=== PATIENT | female | born 1970 | race Caucasian/White ===

== ENCOUNTER 2018-02-04 18:06 | Emergency (ER) | payer MEDICARE ==
--- NOTE | 2018-02-04 18:26 | EKG REPORT ---
SEVERITY:- BORDERLINE ECG - SINUS RHYTHM BORDERLINE T ABNORMALITIES, ANT-LAT LEADS : Confirmed by: Jah Calloway MD 04-Feb-2018 18:26:00
[2018-02-04] MEDS ORDERED: NORMAL SALINE 1000 ML 1,000 ML IV ONE (18:46)
[2018-02-04] MEDS ORDERED: FENTANYL CITRATE INJ/PF 100 MCG/2 ML AMPUL IV ONE (18:46)
[2018-02-04] MEDS ORDERED: ONDANSETRON HCL INJ/PF 4 MG/2 ML SDV IV ONE ×2 (18:46→22:12)
--- NOTE | 2018-02-04 18:48 | ER Document Report ---
ED Medical Screen (RME) - General Chief Complaint: Nausea/Vomiting/Diarrhea Stated Complaint: CHEST PAIN Time Seen by Provider: 02/04/18 18:46 Notes: 48 years old female presents today with left lower quadrant abdominal pain, feels like a mass which is floating around and giving severe pain. Been going on for the last few days. Associated with nausea no vomiting. Denies any diarrhea or constipation. Denies any dysuria frequency urgency. Denies any fever chills or other constitutional symptoms. On examination-leg amputation, left side of the abdomen is extremely tender even with gentle palpation. TRAVEL OUTSIDE OF THE [place] IN LAST 30 DAYS: No - Related Data Allergies/Adverse Reactions: No Known Allergies Allergy (Verified 02/04/18 18:07) Past Medical History - Social History Chew tobacco use (# tins/day): No Frequency of alcohol use: None Drug Abuse: None - Past Medical History Cardiac Medical History: Reports: Hx Hypercholesterolemia, Hx Hypertension Endocrine Medical History: Reports: Hx Diabetes Mellitus Type 2 Renal/ Medical History: Denies: Hx Peritoneal Dialysis Past Surgical History: Reports: Hx Orthopedic Surgery - BKA right leg, left toe amputation x5 Physical Exam - Vital signs Vitals: Temp Pulse Resp BP Pulse Ox 98.4 F 96 18 140/84 H 100 02/04/18 18:20 02/04/18 18:20 02/04/18 18:20 02/04/18 18:20 02/04/18 18:20 Course - Vital Signs Vital signs: Temp Pulse Resp BP Pulse Ox 98.4 F 96 18 140/84 H 100 02/04/18 18:20 02/04/18 18:20 02/04/18 18:20 02/04/18 18:20 02/04/18 18:20
[2018-02-04 19:31] LABS: ABSOLUTE BASOPHILS # (AUTO) 0.1 10^3/uL (0.0-0.2); ABSOLUTE EOSINOPHILS # (AUTO) 0.1 10^3/uL (0.0-0.6); ABSOLUTE LYMPHOCYTES (AUTO) 3.2 10^3/uL (0.5-4.7); ABSOLUTE MONOCYTES (AUTO) 0.7 10^3/uL (0.1-1.4); ABSOLUTE NEUT (AUTO) 5.5 10^3/uL (1.7-8.2); BASOPHILS % (AUTO) 1.1 % (0-2); EOSINOPHILS % (AUTO) 1.2 % (0-6); HEMATOCRIT 43.1 % (36.0-47.0); LYMPHOCYTES % (AUTO) 33.1 % (13-45); MEAN CORPUSCULAR HEMOGLOBIN 29.9 pg (27.0-33.4); MEAN CORPUSCULAR HGB CONC 34.7 g/dL (32.0-36.0); MEAN CORPUSCULAR VOLUME 86 fl (80-97); MONOCYTES % (AUTO) 7.2 % (3-13); PLATELET COUNT 389 10^3/uL (150-450); RED BLOOD COUNT 5.02 10^6/uL (3.72-5.28); RED CELL DISTRIBUTION WIDTH 12.9 % (11.5-14.0); SEGMENTED NEUTROPHILS % (AUTO) 57.4 % (42-78); TOTAL CELLS COUNTED % (AUTO) 100 %; WHITE BLOOD COUNT 9.6 10^3/uL (4.0-10.5)
[2018-02-04 19:43] LABS: APPEARANCE,URINE CLEAR; BILIRUBIN,URINE NEGATIVE (NEGATIVE); COLOR,URINE YELLOW; GLUCOSE, URINE >=500 mg/dL (NEGATIVE); KETONES,URINE NEGATIVE (NEGATIVE); LEUKOCYTE ESTERASE,URINE TRACE (NEGATIVE); NITRITE,URINE NEGATIVE (NEGATIVE); PROTEIN,URINE 100 mg/dL (NEGATIVE); URINE SPECIFIC GRAVITY 1.029; UROBILINOGEN,URINE NEGATIVE mg/dL (<2.0)
[2018-02-04 19:57] LABS: ALANINE AMINOTRANSFERASE 14 U/L (9-52); ALBUMIN 3.7 g/dL (3.5-5.0); ALKALINE PHOSPHATASE 70 U/L (38-126); ANION GAP 9 (5-19); ASPARTATE AMINO TRANSFERASE 28 U/L (14-36); BILIRUBIN,DIRECT 0.2 mg/dL (0.0-0.4); BILIRUBIN,TOTAL 0.5 mg/dL (0.2-1.3); BLOOD UREA NITROGEN 18 mg/dL (7-20); CALCIUM 9.3 mg/dL (8.4-10.2); CARBON DIOXIDE 28 mmol/L (22-30); CHLORIDE 100 mmol/L (98-107); GLUCOSE 349 mg/dL (75-110); POTASSIUM 4.1 mmol/L (3.6-5.0); SODIUM 137.4 mmol/L (137-145)
[2018-02-04] MEDS ORDERED: ASPIRIN 81 MG TABLET, CHEWABLE PO ONE (20:17)
--- NOTE | 2018-02-04 20:26 | ER Document Report ---
ED General - General Chief Complaint: Nausea/Vomiting/Diarrhea Stated Complaint: CHEST PAIN Time Seen by Provider: 02/04/18 18:46 Mode of Arrival: Ambulatory Information source: Patient Notes: 48-year-old female with hypertension, hyperlipidemia, coronary artery disease, type 2 diabetes presents with complaint of chest pain, nausea, vomiting, diarrhea, abdominal pain and headache. Patient states that she awoke this morning at 3 AM with stabbing substernal chest pain that she states has been constant since that time. She denies radiation of pain. Patient's abdominal pain has been there for approximately 6 months. She describes it as an aching pain located in her left upper quadrant. She states the pain is worse when she stands up. She denies shortness of breath. She states that she is also had multiple episodes of nonbilious nonbloody emesis and nonbloody diarrhea. She denies any black or bloody stools. Patient states that she has not been taking her Lantus or metformin since October. When asked why she states that she moved from [place] and the medication was lost in her luggage. Patient is supposed to be taking Lantus 40 units at night and metformin 500 mg twice daily. TRAVEL OUTSIDE OF THE [place] IN LAST 30 DAYS: No - HPI Onset: This morning Onset/Duration: Sudden Quality of pain: Achy, Throbbing Severity: Mild Associated symptoms: Chest pain, Chills, Diarrhea, Nausea, Vomiting Exacerbated by: Movement Relieved by: Denies Similar symptoms previously: Yes Recently seen / treated by doctor: Yes - Related Data Allergies/Adverse Reactions: No Known Allergies Allergy (Verified 02/04/18 18:07) Past Medical History - General Information source: Patient, [facility] Records - Social History Smoking Status: Former Smoker Chew tobacco use (# tins/day): No Frequency of alcohol use: None Drug Abuse: None Lives with: Alone Family History: Reviewed & Not Pertinent Patient has suicidal ideation: No Patient has homicidal ideation: No - Past Medical History Cardiac Medical History: Reports: Hx Hypercholesterolemia, Hx Hypertension Endocrine Medical History: Reports: Hx Diabetes Mellitus Type 2 Renal/ Medical History: Denies: Hx Peritoneal Dialysis Past Surgical History: Reports: Hx Orthopedic Surgery - BKA right leg, left toe amputation x5 Review of Systems - Review of Systems Constitutional: denies: Fever, Recent illness EENT: denies: Blurred vision Cardiovascular: Chest pain. denies: Dizziness Respiratory: denies: Cough, Short of breath Gastrointestinal: Abdominal pain, Diarrhea, Nausea, Vomiting Genitourinary: denies: Dysuria, Flank pain Female Genitourinary: No symptoms reported Musculoskeletal: denies: Back pain Skin: denies: Rash Hematologic/Lymphatic: No symptoms reported Neurological/Psychological: denies: Weakness, Headaches -: Yes All other systems reviewed and negative Physical Exam - Vital signs Vitals: Temp Pulse Resp BP Pulse Ox 98.4 F 96 18 140/84 H 100 02/04/18 18:20 02/04/18 18:20 02/04/18 18:20 02/04/18 18:20 02/04/18 18:20 - Notes Notes: PHYSICAL EXAMINATION: GENERAL: Well-appearing, well-nourished and in no acute distress. HEAD: Atraumatic, normocephalic. EYES: Pupils equal round and reactive to light, extraocular movements intact, conjunctiva are normal. ENT: Nares patent, oropharynx clear without exudates. Moist mucous membranes. NECK: Normal range of motion, supple without lymphadenopathy LUNGS: Breath sounds clear to auscultation bilaterally and equal. No wheezes rales or rhonchi. HEART: Regular rate and rhythm without murmurs ABDOMEN: Soft, nontender, nondistended abdomen. No guarding, no rebound. No masses appreciated. Female : deferred Musculoskeletal: Normal range of motion, no pitting or edema. Right BKA. Amputation of the toes of her left foot. NEUROLOGICAL: Cranial nerves grossly intact. Normal speech, normal gait. Normal sensory, motor exams PSYCH: Normal mood, normal affect. SKIN: Warm, Dry, normal turgor, no rashes or lesions noted. Course - Re-evaluation Re-evalutation: Laboratory 02/04/18 02/04/18 02/04/18 19:21 19:21 19:26 WBC 9.6 RBC 5.02 Hgb 15.0 Hct 43.1 MCV 86 MCH 29.9 MCHC 34.7 RDW 12.9 Plt Count 389 Seg Neutrophils % 57.4 Lymphocytes % 33.1 Monocytes % 7.2 Eosinophils % 1.2 Basophils % 1.1 Absolute Neutrophils 5.5 Absolute Lymphocytes 3.2 Absolute Monocytes 0.7 Absolute Eosinophils 0.1 Absolute Basophils 0.1 Sodium 137.4 Potassium 4.1 Chloride 100 Carbon Dioxide 28 Anion Gap 9 BUN 18 Creatinine 1.04 Est GFR ( Amer) > 60 Est GFR (Non-Af Amer) 56 L Glucose 349 H Calcium 9.3 Total Bilirubin 0.5 Direct Bilirubin 0.2 Neonat Total Bilirubin Not Reportable Neonat Direct Bilirubin Not Reportable Neonat Indirect Bili Not Reportable AST 28 ALT 14 Alkaline Phosphatase 70 Troponin I Total Protein 7.0 Albumin 3.7 Lipase 46.0 Urine Color YELLOW Urine Appearance CLEAR Urine pH 6.0 Ur Specific [place] 1.029 Urine Protein 100 H Urine Glucose (UA) >=500 H Urine Ketones NEGATIVE Urine Blood NEGATIVE Urine Nitrite NEGATIVE Urine Bilirubin NEGATIVE Urine Urobilinogen NEGATIVE Ur Leukocyte Esterase TRACE H Urine WBC (Auto) 1 Urine RBC (Auto) 2 Urine Bacteria (Auto) TRACE Squamous Epi Cells Auto 1 Urine Mucus (Auto) RARE Urine Ascorbic Acid NEGATIVE 02/04/18 20:41 WBC RBC Hgb Hct MCV MCH MCHC RDW Plt Count Seg Neutrophils % Lymphocytes % Monocytes % Eosinophils % Basophils % Absolute Neutrophils Absolute Lymphocytes Absolute Monocytes Absolute Eosinophils Absolute Basophils Sodium Potassium Chloride Carbon Dioxide Anion Gap BUN Creatinine Est GFR ( Amer) Est GFR (Non-Af Amer) Glucose Calcium Total Bilirubin Direct Bilirubin Neonat Total Bilirubin Neonat Direct Bilirubin Neonat Indirect Bili AST ALT Alkaline Phosphatase Troponin I < 0.012 Total Protein Albumin Lipase Urine Color Urine Appearance Urine pH Ur Specific [place] Urine Protein Urine Glucose (UA) Urine Ketones Urine Blood Urine Nitrite Urine Bilirubin Urine Urobilinogen Ur Leukocyte Esterase Urine WBC (Auto) Urine RBC (Auto) Urine Bacteria (Auto) Squamous Epi Cells Auto Urine Mucus (Auto) Urine Ascorbic Acid Abdomen/Pelvis CT 02/04/18 18:46 IMPRESSION: No acute disease. 48-year-old female with hypertension, hyperlipidemia, coronary artery disease, type 2 diabetes (currently noncompliant with her diabetic medication of metformin and Lantus )presents with complaint of chest pain, nausea, vomiting, diarrhea, abdominal pain and headache. Patient states that she awoke this morning at 3 AM with stabbing substernal chest pain that she states has been constant since that time. She denies radiation of pain. Patient's abdominal pain has been there for approximately 6 months. She describes it as an aching pain located in her left upper quadrant. She states the pain is worse when she stands up. Patient reports 3-4 episodes of nonbloody nonbilious emesis. She denies any black or bloody stools. She denies sick contacts, recent antibiotic use. She recently moved here from [place] and reports that she has been seen multiple times for these symptoms in the past. Exam is significant for tenderness to the left upper quadrant without guarding or rebound. Vital signs reviewed and patient is afebrile, mildly hypertensive but not hypoxic. She does not appear toxic or dehydrated. She is in no acute distress. CBC is without leukocytosis or anemia. CMP does show an elevated glucose of 349 without evidence of DKA. Urinalysis is not consistent with urinary tract infection. CT of the abdomen and pelvis was obtained and showed a small periumbilical hernia. Patient received multiple rounds of pain medication, Zofran. On her first reevaluation she is resting comfortably and when awoken she states that she is still in pain. Patient has had no episodes of vomiting or diarrhea during her ED course. Patient was reassured. She was provided prescriptions for Lantus and metformin. HEART Score:3 History-0 ECG-0 Age-1 Risk Factors-2 Troponin-1 Total: 3 If HEART score is = 3 AND both tronponin measurments are normal, the 30 day risk of a major adverse cardiac event (all-cause mortality, myocardia infarction or need for coronary revscularization) is < 1% (Sensitivity 100%, NPV 100%). Chest pain in a patient without evidence of cardiac or other serious etiology on workup today. I discussed with patient that, based on their age, risk factors and emergency department testing today, the likelihood that their symptoms are related to a heart attack is very low (estimated risk of heart attack or over the next 30 days of less than 1%). The patient demonstrates decision making capacity and has verbalized an understanding of these risks to me. Based on this, the patient has chosen to follow-up as an outpatient. Usual chest pain return precautions reviewed. The patient states understanding and agreement with this plan. Patient was evaluated and treated as appropriate for the patient's presenting symptoms and complaint, with consideration of any critical or life threatening conditions that may be associated with their obtained history and exam as noted above. All results were discussed with patient . Patient provided the opportunity to ask questions, and express concerns. Patient was educated on treatments based on their presumed diagnosis as noted above. At this time we will discharge the patient with return precautions and follow-up recommendations. Verbal discharge instructions given a the bedside. Medication warnings reviewed. Patient is in agreement with this plan and has verbalized understanding of return precautions. After careful consideration I feel that that patient can be safely discharged from the emergency department, they were advised to followup with a primary care physician in 2-3 days. Dictation on this chart was performed using voice recognition software and may result in unintended grammatical, spelling, syntax or errors. 02/04/18 22:47 Patient reports improvement in her abdominal pain, nausea. 02/05/18 01:52 02/05/18 01:55 - Vital Signs Vital signs: Temp Pulse Resp BP Pulse Ox 98.4 F 96 17 151/88 H 98 02/04/18 18:20 02/04/18 18:20 02/04/18 21:16 02/04/18 20:31 02/04/18 21:16 - Laboratory Result Diagrams: 02/04/18 19:21 02/04/18 19:21 Laboratory results interpreted by me: 02/04/18 02/04/18 19:21 19:26 Est GFR (Non-Af Amer) 56 L Glucose 349 H Urine Protein 100 H Urine Glucose (UA) >=500 H Ur Leukocyte Esterase TRACE H - Diagnostic Test Radiology reviewed: Image reviewed, Reports reviewed - EKG Interpretation by Me EKG shows normal: Sinus rhythm Rate: Normal When compared to previous EKG there are: Previous EKG unavailable Discharge - Discharge Clinical Impression: Nausea vomiting and diarrhea, Medication refill Chest pain Qualifiers: Chest pain type: unspecified Qualified Code(s): R07.9 - Chest pain, unspecified Hypertension Qualifiers: Hypertension type: unspecified Qualified Code(s): I10 - Essential (primary) hypertension Type 2 diabetes mellitus Qualifiers: Diabetes mellitus intermediate teacher insulin use: with intermediate teacher use Diabetes mellitus complication status: without complication Qualified Code(s): E11.9 - Type 2 diabetes mellitus without complications Umbilical hernia Qualifiers: Obstruction and gangrene presence: without obstruction or gangrene Qualified Code(s): K42.9 - Umbilical hernia without obstruction or gangrene Constipation Qualifiers: Constipation type: unspecified constipation type Qualified Code(s): K59.00 - Constipation, unspecified Condition: Good Disposition: HOME, SELF-CARE Instructions: Abdominal Pain ([facility]), Antinausea Medication ([facility]), Constipation ( [facility]), Chest Pain of Unclear Cause ([facility]), Diabetes ([facility]), Control of Diabetes During Illness ([facility]), Diarrhea, Nonspecific ([facility]), Umbilical Hernia ([facility]), Viral Syndrome ([facility]), Vomiting ([facility]) Additional Instructions: You were seen today for chest pain. The exact cause of your pain is unclear. However, based on your cardiac enzyme testing, chest x-ray, and EKG it does not appear that it is from an immediately life-threatening cause at this time. Although your testing here is normal is critical that you follow-up with your primary care physician for continued evaluation of this chest pain and possible stress testing. I recommended you see your physician within the next 24-48 hours to be evaluated for consideration of a stress test. Please return to emergency department immediately if you have worsening of your chest pain, shortness of breath, vomiting, become unable to exert yourself due to pain or difficulty breathing, you pass out, or have any pain that radiates into your arms, jaw, or back. Please also return if you have any additional symptoms that are concerning to you. You have been seen in the Emergency Department (ED) for abdominal pain. Your evaluation did not identify a clear cause of your symptoms but was generally reassuring. Please follow up with your doctor as soon as possible regarding today's emergent visit and the symptoms that are bothering you. Return to the ED if your abdominal pain worsens or fails to improve, you develop bloody vomiting, bloody diarrhea, you are unable to tolerate fluids due to vomiting, fever greater than 101, or other symptoms that concern you. Follow up with your [id number] hours for further care or return to the ED IMMEDIATELY if symptoms worsen or you have any concerns. If you cannot afford to follow up with your primary care physician a list of low cost clinics have been provided at the end of your discharge papers as well. Most prescribed medications have multiple side effects. The safest thing to do is when filling your prescription speak to your pharmacist regarding possible interactions with your normal home medications and over the counter medications such as Ibuprofen, Tylenol, Benadryl. If you experience any symptoms that cause you discomfort or concern you should discontinue the medication immediately and return to the emergency room or call your primary care physician. Prescriptions: Insulin Glargine,Hum.rec.anlog [Lantus] 40 unit SQ QHS #10 vial Dicyclomine HCl [Bentyl 20 mg Tablet] 20 mg PO Q8H PRN #15 tablet PRN Reason: Docusate Sodium [Colace] 100 mg PO DAILY #14 capsule Metformin HCl [Glucophage 500 mg Tablet] 500 mg PO BID #60 tablet Ondansetron [Zofran Odt 4 mg Tablet] 1 - 2 tab PO Q4H PRN #15 tab.rapdis PRN Reason: For Nausea/Vomiting Polyethylene Glycol 3350 [Miralax Powder 17 gm/Packet] 1 packet PO DAILY #14 pkg Forms: Elevated Blood Pressure
--- NOTE | 2018-02-04 21:34 | RADIOLOGY REPORT (SQ) ---
CT abdomen and pelvis with IV contrast HISTORY: Abdominal pain. This exam was performed according to our departmental dose-optimization program which includes automated exposure control, adjustment of the mA and/or kVp according to patient size and/or use of iterative reconstruction technique where applicable. FINDINGS: Visualized lung bases are within normal limits. Liver, spleen, pancreas, gallbladder, adrenal glands and kidneys are within normal limits. No hydronephrosis or biliary dilatation. No dilated loops of bowel to suggest obstruction. Mild amount of stool in the colon. No free fluid or free air. Bladder is unremarkable. The gynecologic organs are unremarkable. Mild fat-containing umbilical hernia. No abdominal or pelvic lymphadenopathy. Abdominal aorta is within normal limits. Appendix is normal. IMPRESSION: No acute disease.
[2018-02-04] MEDS ORDERED: MORPHINE SULFATE 10 MG/ML INJ IV ONE (22:11)
[2018-02-04] MEDS ORDERED: HYDROCODONE/ACETAMINOPHEN 5-325 MG (6 TAB/ER DISP) PO PRN (23:00)
[2018-02-05 02:13] VITALS: BP 151/90
== END 2018-02-05 04:30 | disposition home or self-care (01) ==
LOC: ER 18:06
DX: K42.9 Umbilical hernia without obstruction or gangrene (principal); R11.2 Nausea with vomiting, unspecified; E11.9 Type 2 diabetes mellitus without complications; R19.7 Diarrhea, unspecified; K59.00 Constipation, unspecified; R07.9 Chest pain, unspecified; R51 Headache; R10.9 Unspecified abdominal pain; E78.5 Hyperlipidemia, unspecified; I10 Essential (primary) hypertension; I25.10 Atherosclerotic heart disease of native coronary artery without angina pectoris; Z79.4 Long term (current) use of insulin; Z79.84 Long term (current) use of oral hypoglycemic drugs; Z89.511 Acquired absence of right leg below knee
CPT/HCPCS: 93005; 96376; 99285; 96361; 96374; 96375; 36415; 83690; 85025; 80053; 81001; 84484; 74177; 93010; A9270; J3010; J2270; J2405; J7030

== ENCOUNTER 2018-03-06 12:27 | Emergency (ER) | payer MEDICARE ==
[2018-03-06] MEDS ORDERED: OXYCODONE-ACETAMINOPHEN 5-325 MG TABLET PO ONE (13:08)
--- NOTE | 2018-03-06 13:08 | ER Document Report ---
ED Medical Screen (RME) - General Chief Complaint: Nausea/Vomiting/Diarrhea Stated Complaint: ABDOMINAL PAIN,VOMITING,DIARRHEA Time Seen by Provider: 03/06/18 12:57 Notes: 48-year-old female. Poorly compliant diabetic. To the emergency department complaining of left upper quadrant pain. States that this is been present for several years. Has been told that there is nothing to worry about but patient states that just having a shirt or bra or rub up against the left upper quadrant /left lower chest makes her break out in severe pain. Patient crying at triage. I have greeted and performed a rapid initial assessment of this patient. A comprehensive ED assessment and evaluation of the patient, analysis of test results and completion of the medical decision making process will be conducted by additional ED providers. TRAVEL OUTSIDE OF THE [place] IN LAST 30 DAYS: No - Related Data Allergies/Adverse Reactions: No Known Allergies Allergy (Verified 03/06/18 13:03) Past Medical History - Social History Chew tobacco use (# tins/day): No Frequency of alcohol use: None Drug Abuse: None - Past Medical History Cardiac Medical History: Reports: Hx Hypercholesterolemia, Hx Hypertension Endocrine Medical History: Reports: Hx Diabetes Mellitus Type 2 Renal/ Medical History: Denies: Hx Peritoneal Dialysis Past Surgical History: Reports: Hx Orthopedic Surgery - BKA right leg, left toe amputation x5 Physical Exam - Vital signs Vitals: Temp Pulse Resp BP Pulse Ox 97.5 F 99 16 146/86 H 99 03/06/18 12:34 03/06/18 12:34 03/06/18 12:34 03/06/18 12:34 03/06/18 12:34 - Abdominal Inspection: Normal Distension: No distension Bowel sounds: Normal Tenderness: Tender Organomegaly: No organomegaly Course - Vital Signs Vital signs: Temp Pulse Resp BP Pulse Ox 97.5 F 99 16 146/86 H 99 03/06/18 12:34 03/06/18 12:34 03/06/18 12:34 03/06/18 12:34 03/06/18 12:34
[2018-03-06 13:30] LABS: ABSOLUTE BASOPHILS # (AUTO) 0.1 10^3/uL (0.0-0.2); ABSOLUTE EOSINOPHILS # (AUTO) 0.1 10^3/uL (0.0-0.6); ABSOLUTE LYMPHOCYTES (AUTO) 2.7 10^3/uL (0.5-4.7); ABSOLUTE MONOCYTES (AUTO) 0.7 10^3/uL (0.1-1.4); ABSOLUTE NEUT (AUTO) 4.9 10^3/uL (1.7-8.2); BASOPHILS % (AUTO) 1.2 % (0-2); EOSINOPHILS % (AUTO) 1.4 % (0-6); HEMATOCRIT 46.4 % (36.0-47.0); HEMOGLOBIN 16.1 g/dL (12.0-15.5); LYMPHOCYTES % (AUTO) 31.7 % (13-45); MEAN CORPUSCULAR HEMOGLOBIN 29.7 pg (27.0-33.4); MEAN CORPUSCULAR HGB CONC 34.7 g/dL (32.0-36.0); MEAN CORPUSCULAR VOLUME 86 fl (80-97); MONOCYTES % (AUTO) 7.9 % (3-13); PLATELET COUNT 408 10^3/uL (150-450); RED BLOOD COUNT 5.43 10^6/uL (3.72-5.28); RED CELL DISTRIBUTION WIDTH 13.2 % (11.5-14.0); SEGMENTED NEUTROPHILS % (AUTO) 57.8 % (42-78); TOTAL CELLS COUNTED % (AUTO) 100 %; WHITE BLOOD COUNT 8.5 10^3/uL (4.0-10.5)
[2018-03-06] MEDS ORDERED: NORMAL SALINE 1000 ML 1,000 ML IV ONE (13:44)
[2018-03-06] MEDS ORDERED: ONDANSETRON HCL INJ/PF 4 MG/2 ML SDV IV ONE (13:45)
[2018-03-06 13:52] LABS: ALANINE AMINOTRANSFERASE 26 U/L (9-52); ALKALINE PHOSPHATASE 69 U/L (38-126); ANION GAP 17 (5-19); ASPARTATE AMINO TRANSFERASE 14 U/L (14-36); BILIRUBIN,DIRECT 0.2 mg/dL (0.0-0.4); BILIRUBIN,TOTAL 0.4 mg/dL (0.2-1.3); BLOOD UREA NITROGEN 12 mg/dL (7-20); CARBON DIOXIDE 28 mmol/L (22-30); CHLORIDE 98 mmol/L (98-107); GLUCOSE 292 mg/dL (75-110); POTASSIUM 4.2 mmol/L (3.6-5.0); SODIUM 143.1 mmol/L (137-145); TOTAL PROTEIN 7.2 g/dL (6.3-8.2)
[2018-03-06] MEDS ORDERED: MAG HYDROX/AL HYDROX/SIMETH SUSP 30 ML UDCUP PO ONE (13:53)
[2018-03-06] MEDS ORDERED: LIDOCAINE 2% VISCOUS SOLN 20 ML UDCUP PO ONE (13:53)
[2018-03-06] MEDS ORDERED: METOCLOPRAMIDE HCL ORAL SOLN 10 MG/10 ML UDCUP PO ONE (13:53)
--- NOTE | 2018-03-06 13:53 | ER Document Report ---
ED GI/ - General Chief Complaint: Nausea/Vomiting/Diarrhea Stated Complaint: ABDOMINAL PAIN,VOMITING,DIARRHEA Time Seen by Provider: 03/06/18 12:57 Notes: 48-year-old female presents with left upper quadrant pain. She has had this recurrent on and off for the last several years. She describes it as severe today 10 out of 10 nawing. Is in her left upper quadrant. Chest pain denies shortness of breath denies fever chills. She denies any black bloody or tarry stools denies hematemesis or coffee-ground emesis. Denies calf pain or leg swelling denies hematuria or dysuria TRAVEL OUTSIDE OF THE [place] IN LAST 30 DAYS: No - Related Data Allergies/Adverse Reactions: No Known Allergies Allergy (Verified 03/06/18 13:03) Past Medical History - Social History Smoking Status: Never Smoker Chew tobacco use (# tins/day): No Frequency of alcohol use: None Drug Abuse: None Family History: Reviewed & Not Pertinent Patient has suicidal ideation: No Patient has homicidal ideation: No - Past Medical History Cardiac Medical History: Reports: Hx Hypercholesterolemia, Hx Hypertension Endocrine Medical History: Reports: Hx Diabetes Mellitus Type 2 Renal/ Medical History: Denies: Hx Peritoneal Dialysis Past Surgical History: Reports: Hx Orthopedic Surgery - BKA right leg, left toe amputation x5 Review of Systems - Review of Systems Cardiovascular: denies: Chest pain, Dyspnea Gastrointestinal: Abdominal pain, Nausea Genitourinary: denies: Dysuria, Hematuria -: Yes All other systems reviewed and negative Physical Exam - Vital signs Vitals: Temp Pulse Resp BP Pulse Ox 97.5 F 99 16 146/86 H 99 03/06/18 12:34 03/06/18 12:34 03/06/18 12:34 03/06/18 12:34 03/06/18 12:34 - Notes Notes: GENERAL_APPEARANCE: well_nourished, alert, cooperative, appears uncomfortable tearful VITALS: reviewed, see vital signs table. HEAD: no_swelling\tenderness on the head. EYES: PERRL, EOMI, conjunctiva_clear. NOSE: no_nasal_discharge. MOUTH: (-)decreased moisture. THROAT: no_throat_inflammation, no_airway_obstruction. no_lymphadenopathy NECK: supple, no_neck_tenderness, (-)thyromegaly. BACK: no_back_tenderness. CHEST_WALL: no_chest_tenderness. LUNGS: no_wheezing, no_rales, no_rhonchi, (-)accessory muscle use, good air exchange bilateral. HEART: normal_rate, normal_rhythm, normal_S1, normal_S2, (-)S3, (-)S4, no_ murmur, no_rub. ABDOMEN: normal_BS, soft, upper quadrant_abd_tenderness, (-)guarding, (-) rebound, no_organomegaly, no_abd_masses. EXTREMITIES: good pulses in all_extremities, no_swelling\tenderness in the extremities, no_edema. Right BKA SKIN: warm, dry, good_color, no_rash. MENTAL_STATUS: speech_clear, oriented_X_3, normal_affect, responds_ appropriately to questions. Course - Re-evaluation Re-evalutation: 03/06/18 13:53 48-year-old female presents with acute on chronic left upper quadrant abdominal pain. Will start a full workup on the patient. 03/06/18 14:14 Patient stated she has had this for a long time. But she has not had an EGD. I explained the importance of following up with gastroenterology. We will give her referral we will give her a GI cocktail - Vital Signs Vital signs: Temp Pulse Resp BP Pulse Ox 97.5 F 99 16 146/86 H 99 03/06/18 12:34 03/06/18 12:34 03/06/18 12:34 03/06/18 12:34 03/06/18 12:34 - Laboratory Result Diagrams: 03/06/18 13:18 03/06/18 13:18 Laboratory results interpreted by me: 03/06/18 03/06/18 13:18 13:18 RBC 5.43 H Hgb 16.1 H Glucose 292 H - Diagnostic Test Radiology reviewed: Reports reviewed Radiology results interpreted by me: 03/06/18 16:24 Acute Abdomen Series 03/06/18 13:08 IMPRESSION: NO RADIOGRAPHIC EVIDENCE FOR ACUTE ABDOMINAL DISEASE. Discharge - Discharge Clinical Impression: Abdominal pain Qualifiers: Abdominal location: upper abdomen, unspecified Qualified Code(s): R10.10 - Upper abdominal pain, unspecified Condition: Good Disposition: HOME, SELF-CARE Instructions: Abdominal Pain ([facility]) Additional Instructions: Please follow-up with Dr. Young for gastroenterology consultation Prescriptions: Famotidine [Pepcid 40 mg Tablet] 40 mg PO QHS #30 tablet Dicyclomine HCl [Bentyl 20 mg Tablet] 20 mg PO QID PRN #30 tablet PRN Reason: Pain Scale Of 5 Referrals: TING HERNANDEZ MD [ACTIVE STAFF] - Follow up as needed
--- NOTE | 2018-03-06 14:07 | RADIOLOGY REPORT (SQ) ---
EXAM DESCRIPTION: ACUTE ABDOMEN SERIES COMPLETED DATE/TIME: 03/06/2018 1:57 pm REASON FOR STUDY: LUQ pain COMPARISON: CT scan NUMBER OF VIEWS: Three views. TECHNIQUE: Frontal chest, supine abdomen and upright/decubitus abdomen radiographic images acquired. LIMITATIONS: None. FINDINGS: CHEST: Lungs clear of infiltrates. FREE AIR: None. No abnormal gas collections. BOWEL GAS PATTERN: Nonobstructive pattern. No dilated loops or air fluid levels. CALCIFICATIONS: No suspicious calcifications. HARDWARE: Multiple round metallic foreign bodies scattered throughout the chest and abdomen. SOFT TISSUES: No gross mass or suggestion of organomegaly. BONES: No acute fracture. No worrisome bone lesions. OTHER: No other significant finding. IMPRESSION: NO RADIOGRAPHIC EVIDENCE FOR ACUTE ABDOMINAL DISEASE. TECHNICAL DOCUMENTATION: JOB ID: [id number] [employer]- All Rights Reserved Reading location - IP/workstation name: [email or web address]
[2018-03-06 16:45] VITALS: BP 157/100
--- NOTE | 2018-03-07 10:38 | EKG REPORT ---
SEVERITY:- OTHERWISE NORMAL ECG - SINUS TACHYCARDIA LVH WITH SECONDARY ST-T CHANGES : Confirmed by: Raghu Rodriguez 07-Mar-2018 10:37:34
== END 2018-03-06 16:46 | disposition home or self-care (01) ==
LOC: ER 12:27
DX: R10.10 Upper abdominal pain, unspecified (principal); R11.2 Nausea with vomiting, unspecified; R19.7 Diarrhea, unspecified; E78.00 Pure hypercholesterolemia, unspecified; I10 Essential (primary) hypertension; E11.9 Type 2 diabetes mellitus without complications; Z89.511 Acquired absence of right leg below knee
CPT/HCPCS: 93005; 99284; 96361; 96374; 36415; 85025; 80053; 84484; 74022; 93010; J3490; A9270 ×2; J2405; J7030

== ENCOUNTER 2018-03-22 11:43 | Day surgery (SDC) | payer MEDICARE ==
[~2018-03-22 11:43] MED LIST: PROPOFOL INJ 200 MG/20 ML VIAL IV ONE
[2018-03-22 13:06] VITALS: BP 170/88
--- NOTE | 2018-03-22 13:27 | Operative Report ---
Operative Report DATE OF SURGERY: 03/22/18 Operative Report: The risks, benefits and alternatives of the procedure including the risk of bleeding, perforation requiring surgery are explained to the patient in detail and informed consent was obtained. Patient was placed in the left, lateral decubital position. Timeout was called. Propofol medications administered. A rectal examination is done which did not reveal any masses, tears or fissures. An Olympus videoscope was introduced into the patient's rectum. The scope was then carefully advanced all the way to the cecum. The cecum was identified by the usual anatomical landmarks including the ileocecal valve as well as appendiceal office. Photodocumentation was obtained. The scope was then sequentially pulled back via the various segments of the colon including the ascending colon, hepatic flexure, transverse colon, splenic flexure, descending colon and finally into the rectosigmoid portions of the colon. Retroflexion maneuver was performed. The risks benefits and alternatives of the procedure explained to the patient in detail and informed consent is obtained.A GIF Olympus video scope was inserted into the patient's mouth and hypopharynx, the esophagus is identified intubated and insufflated ,the scope was then advanced through the esophagus stomach and duodenum, retroflexion maneuver is done the esophagus stomach and first and second portions of the duodenum examined PREOPERATIVE DIAGNOSIS: Change in bowel habits. Nausea vomiting POSTOPERATIVE DIAGNOSIS: Right-sided colon inflammation status post biopsy. Poorly distensible colon with an element of mucosal edema. Esophagitis versus Mckeon's status post biopsy. Gastritis status post biopsy rule out Helicobacter pylori OPERATION: Colonoscopy with biopsy. EGD with biopsy SURGEON: TING HERNANDEZ ANESTHESIA: LMAC TISSUE REMOVED OR ALTERED: As noted above. COMPLICATIONS: None. ESTIMATED BLOOD LOSS: None. INTRAOPERATIVE FINDINGS: As noted above. PROCEDURE: Patient tolerated the procedure well. No immediate postprocedure complications are noted. Patient discharged in good condition. Discharge date 03/22/2018. Discharge diet: Regular. Discharge activity: Regular. 2-3-week follow-up to discuss findings. Patient is instructed to call the office or proceed to the emergency room should there be any further problems or questions. Wait on the pathology. May need potential ablative procedure.
== END 2018-03-22 13:41 | disposition home or self-care (01) ==
LOC: END 11:43
PROVIDERS: ATTEND Internal Medicine Gastroenterology
DX: R11.2 Nausea with vomiting, unspecified (principal); R19.4 Change in bowel habit; Z80.0 Family history of malignant neoplasm of digestive organs
CPT/HCPCS: 43239; 45380; 82962; 88342 ×2; 88305 ×2; J2704; 813

== ENCOUNTER 2018-05-01 09:52 | Emergency (ER) | payer MEDICARE, MEDICAID ==
[2018-05-01] MEDS ORDERED: NORMAL SALINE 1000 ML 1,000 ML IV ONE (10:21)
[2018-05-01] MEDS ORDERED: LIDOCAINE 2% VISCOUS SOLN 20 ML UDCUP PO ONE (10:27)
[2018-05-01] MEDS ORDERED: MAG HYDROX/AL HYDROX/SIMETH SUSP 30 ML UDCUP PO ONE (10:27)
[2018-05-01] MEDS ORDERED: METOCLOPRAMIDE HCL ORAL SOLN 10 MG/10 ML UDCUP PO ONE (10:27)
[2018-05-01 11:17] LABS: APPEARANCE,URINE SLIGHTLY-CLOUDY; BILIRUBIN,URINE NEGATIVE (NEGATIVE); COLOR,URINE YELLOW; GLUCOSE, URINE >=500 mg/dL (NEGATIVE); KETONES,URINE NEGATIVE (NEGATIVE); LEUKOCYTE ESTERASE,URINE NEGATIVE (NEGATIVE); NITRITE,URINE NEGATIVE (NEGATIVE); PROTEIN,URINE 100 mg/dL (NEGATIVE); URINE SPECIFIC GRAVITY 1.026; UROBILINOGEN,URINE NEGATIVE mg/dL (<2.0)
[2018-05-01 11:40] LABS: ABSOLUTE BASOPHILS # (AUTO) 0.1 10^3/uL (0.0-0.2); ABSOLUTE EOSINOPHILS # (AUTO) 0.1 10^3/uL (0.0-0.6); ABSOLUTE MONOCYTES (AUTO) 0.7 10^3/uL (0.1-1.4); ABSOLUTE NEUT (AUTO) 7.3 10^3/uL (1.7-8.2); BASOPHILS % (AUTO) 0.9 % (0-2); EOSINOPHILS % (AUTO) 0.7 % (0-6); HEMATOCRIT 47.3 % (36.0-47.0); HEMOGLOBIN 16.3 g/dL (12.0-15.5); LYMPHOCYTES % (AUTO) 19.6 % (13-45); MEAN CORPUSCULAR HEMOGLOBIN 29.7 pg (27.0-33.4); MEAN CORPUSCULAR HGB CONC 34.4 g/dL (32.0-36.0); MEAN CORPUSCULAR VOLUME 86 fl (80-97); MONOCYTES % (AUTO) 6.7 % (3-13); PLATELET COUNT 410 10^3/uL (150-450); RED BLOOD COUNT 5.48 10^6/uL (3.72-5.28); SEGMENTED NEUTROPHILS % (AUTO) 72.1 % (42-78); TOTAL CELLS COUNTED % (AUTO) 100 %; WHITE BLOOD COUNT 10.1 10^3/uL (4.0-10.5)
[2018-05-01 11:55] LABS: ALANINE AMINOTRANSFERASE 29 U/L (9-52); ALBUMIN 4.4 g/dL (3.5-5.0); ALKALINE PHOSPHATASE 80 U/L (38-126); ANION GAP 9 (5-19); ASPARTATE AMINO TRANSFERASE 14 U/L (14-36); BILIRUBIN,DIRECT 0.2 mg/dL (0.0-0.4); BILIRUBIN,TOTAL 0.7 mg/dL (0.2-1.3); BLOOD UREA NITROGEN 15 mg/dL (7-20); CALCIUM 10.3 mg/dL (8.4-10.2); CARBON DIOXIDE 28 mmol/L (22-30); CHLORIDE 99 mmol/L (98-107); GLUCOSE 330 mg/dL (75-110); LIPASE 34.9 U/L (23-300); POTASSIUM 4.7 mmol/L (3.6-5.0); SODIUM 136.3 mmol/L (137-145); TOTAL PROTEIN 7.2 g/dL (6.3-8.2)
[2018-05-01] MEDS ORDERED: DICYCLOMINE HCL 20 MG TABLET PO ONE (12:37)
--- NOTE | 2018-05-01 12:39 | ER Document Report ---
ED General - General Chief Complaint: Abdominal Pain Stated Complaint: ABDOMINAL PAIN Time Seen by Provider: 05/01/18 10:19 TRAVEL OUTSIDE OF THE [place] IN LAST 30 DAYS: No - HPI Patient complains to provider of: Abdominal pain Notes: Patient coming in for exacerbation of chronic left upper quadrant abdominal pain ongoing for 2 years. Patient recently had a EGD and colonoscopy performed. Patient states she is not yet follow-up with the results due to the other issues that interfered with the appointment. Patient denies any fevers or chills patient is also concerned and is requesting that I fix her umbilical hernia today. Patient also states that she has a lump on the right thigh that she is concerned about. Patient states the lump is also been present for greater than 2 weeks. Denies any fevers chills diarrhea nausea vomiting. Patient otherwise resting comfortably upon my evaluation denies any exacerbating or relieving factors of her chronic to your pain. - Related Data Allergies/Adverse Reactions: No Known Allergies Allergy (Verified 05/01/18 09:53) Past Medical History - Social History Smoking Status: Never Smoker Chew tobacco use (# tins/day): No Frequency of alcohol use: None Drug Abuse: None Family History: Reviewed & Not Pertinent Patient has suicidal ideation: No Patient has homicidal ideation: No - Past Medical History Cardiac Medical History: Reports: Hx Coronary Artery Disease - MEDICATION, Hx Hypercholesterolemia, Hx Hypertension Denies: Hx Heart Attack Pulmonary Medical History: Denies: Hx Asthma, Hx Bronchitis, Hx COPD, Hx Pneumonia Neurological Medical History: Denies: Hx Cerebrovascular Accident, Hx Seizures Endocrine Medical History: Reports: Hx Diabetes Mellitus Type 2 Renal/ Medical History: Denies: Hx Peritoneal Dialysis Musculoskeletal Medical History: Denies Hx Arthritis Past Surgical History: Reports: Hx Orthopedic Surgery - BKA right leg, left toe amputation x5 - Immunizations Hx Diphtheria, Pertussis, Tetanus Vaccination: Yes Review of Systems - Review of Systems Constitutional: No symptoms reported EENT: No symptoms reported Cardiovascular: No symptoms reported Respiratory: No symptoms reported Gastrointestinal: Abdominal pain Genitourinary: No symptoms reported Female Genitourinary: No symptoms reported Musculoskeletal: No symptoms reported Skin: No symptoms reported Hematologic/Lymphatic: No symptoms reported Neurological/Psychological: No symptoms reported -: Yes All other systems reviewed and negative Physical Exam - Vital signs Vitals: Temp Pulse Resp BP Pulse Ox 97.9 F 102 H 16 107/70 100 05/01/18 10:17 05/01/18 10:17 05/01/18 10:17 05/01/18 10:17 05/01/18 10:17 Interpretation: Normal - General General appearance: Appears well, Alert - HEENT Head: Normocephalic, Atraumatic Eyes: Normal Pupils: PERRL - Respiratory Respiratory status: No respiratory distress Chest status: Nontender Breath sounds: Normal Chest palpation: Normal - Cardiovascular Rhythm: Regular Heart sounds: Normal auscultation Murmur: No - Abdominal Inspection: Normal Distension: No distension Bowel sounds: Normal Tenderness: Nontender Organomegaly: No organomegaly - Back Back: Normal, Nontender - Extremities General upper extremity: Normal inspection, Nontender, Normal color, Normal ROM, Normal temperature General lower extremity: Normal inspection, Nontender, Normal color, Normal ROM, Normal temperature - Neurological Neuro grossly intact: Yes Cognition: Normal Orientation: AAOx4 Dougie Coma Scale Eye Opening: Spontaneous Dougie Coma Scale Verbal: Oriented Dougie Coma Scale Motor: Obeys Commands Dougie Coma Scale Total: 15 Speech: Normal Motor strength normal: LUE, RUE, LLE, RLE Sensory: Normal - Psychological Associated symptoms: Normal affect, Normal mood - Skin Skin Temperature: Warm Skin Moisture: Dry Skin Color: Normal Course - Re-evaluation Re-evalutation: 05/01/18 14:32 The patient presents with abdominal pain without signs of peritonitis or other life-threatening or serious etiology. The patient appears stable for discharge and has been instructed to return immediately if the symptoms worsen in any way, or in 8-12hr if not improved for re-evaluation. The patient has been instructed to return if the symptoms worsen or change in any way. - Vital Signs Vital signs: Temp Pulse Resp BP Pulse Ox 98.3 F 99 16 111/70 98 05/01/18 12:53 05/01/18 12:53 05/01/18 12:53 05/01/18 13:11 05/01/18 12:53 - Laboratory Result Diagrams: 05/01/18 11:18 05/01/18 11:18 Laboratory results interpreted by me: 05/01/18 05/01/18 05/01/18 10:31 11:18 11:18 RBC 5.48 H Hgb 16.3 H Hct 47.3 H Sodium 136.3 L Glucose 330 H Calcium 10.3 H Urine Protein 100 H Urine Glucose (UA) >=500 H Discharge - Discharge Clinical Impression: Abdominal pain Qualifiers: Abdominal location: left upper quadrant Qualified Code(s): R10.12 - Left upper quadrant pain Condition: Good Disposition: HOME, SELF-CARE Instructions: Abdominal Pain ([facility]), Surgeon Additional Instructions: Please follow-up with your primary care physician GI specialist and surgeon provided for your chronic medical issues at this time your laboratory studies not show any acute findings suggestive of an infectious process or surgical process causing her left upper quadrant abdominal pain. Please continue your home medications review prescribed. He may take the Zofran for any nausea that she may have been suffering abdominal pain that she may have as well. If you do wish to have her hernia repaired I would recommend following up with the surgical clinic provided. Return to the ER symptoms worsen. Please follow bland diet for the next 24 hours clear liquids and advancing as tolerated. Prescriptions: Dicyclomine HCl [Bentyl 20 mg Tablet] 20 mg PO QID #30 tablet Metoclopramide HCl [Reglan] 5 mg PO Q6 #30 tablet Ondansetron [Zofran Odt 4 mg Tablet] 1 - 2 tab PO Q4H PRN #15 tab.rapdis PRN Reason: For Nausea/Vomiting Forms: Return to Work Referrals: ZNIA MONTOYA MD [ACTIVE STAFF] - Follow up as needed
[2018-05-01 13:11] VITALS: BP 111/70
== END 2018-05-01 13:16 | disposition home or self-care (01) ==
LOC: ER 09:52
DX: R10.12 Left upper quadrant pain (principal); I25.10 Atherosclerotic heart disease of native coronary artery without angina pectoris; I10 Essential (primary) hypertension; E11.9 Type 2 diabetes mellitus without complications
CPT/HCPCS: 99284; 96360; 36415; 83690; 85025; 80053; 81001; A9270 ×2; J3490; J7030

== ENCOUNTER 2018-06-29 12:03 | Day surgery (SDC) | payer MEDICARE, MEDICAID ==
[~2018-06-29 12:03] MED LIST changes: +CEFAZOLIN 2 GM/D5W RTU 2 GM/50 ML RTUPB IV PRN; +IBUPROFEN 800 MG in NORMAL SALINE 250 ML IV PRN; +LACTATED RINGERS 1000 ML IV PRN; +LIDOCAINE 0.5% INJ-PF (5 MG/ML) 50 ML SDV SUBCUT PRN; -PROPOFOL INJ 200 MG/20 ML VIAL IV ONE
[2018-06-29] MEDS ORDERED: BUPIVACAINE HCL 0.25 % INJ/PF (2.5 MG/1 ML) 30 ML VIAL ONE (12:42)
[2018-06-29] MEDS ORDERED: CEFAZOLIN 2 GM/D5W RTU 2 GM/50 ML RTUPB IV ONE (12:44)
[2018-06-29] MEDS ORDERED: FAMOTIDINE INJ/PF 20 MG/2 ML SDV IV ONE (13:58)
[2018-06-29] MEDS ORDERED: METOCLOPRAMIDE HCL INJ/PF 10 MG/2 ML SDV ONE (14:00)
[2018-06-29] MEDS ORDERED: FENTANYL CITRATE INJ/PF 100 MCG/2 ML AMPUL ONE ×2 (14:20→15:52)
[2018-06-29] MEDS ORDERED: ONDANSETRON HCL INJ/PF 4 MG/2 ML SDV ONE (14:20)
[2018-06-29] MEDS ORDERED: MIDAZOLAM 2 MG/2 ML INJ ONE (14:20)
[2018-06-29] MEDS ORDERED: PROPOFOL INJ 200 MG/20 ML VIAL IV ONE (14:21)
[2018-06-29] MEDS ORDERED: ACETAMINOPHEN 1,000 MG/100 ML RTUPB IV ONE (14:21)
[2018-06-29] MEDS ORDERED: LIDOCAINE 1% INJ-PF (10 MG/ML) 30 ML SDV ONE (14:27)
[2018-06-29] MEDS ORDERED: PROMETHAZINE HCL INJ 25 MG/1 ML VIAL IV PRN (15:12)
[2018-06-29] MEDS ORDERED: DIPHENHYDRAMINE HCL 50 MG/ML VIAL IV PRN (15:12)
[2018-06-29] MEDS ORDERED: ONDANSETRON HCL INJ/PF 4 MG/2 ML SDV IV PRN (15:12)
[2018-06-29] MEDS ORDERED: FENTANYL CITRATE INJ/PF 100 MCG/2 ML AMPUL IV PRN ×3 (15:12)
[2018-06-29] MEDS ORDERED: MEPERIDINE HCL/PF INJ 25 MG/1 ML DISP.SYRIN IV PRN (15:12)
--- NOTE | 2018-06-29 15:57 | Discharge Summary ---
Discharge Summary (SDC) - Discharge Final Diagnosis: Symptomatic umbilical hernia Date of Surgery: 06/29/18 Discharge Date: 06/29/18 Condition: Stable Treatment or Instructions: Discharge home. Diet as tolerated. Activity: No lifting greater than 10 pounds x 6 weeks. Follow-up with me in 7-10 days. [place] 10/325 mg p.o. every 6 hours as needed for pain. Okay to remove bandage and shower in 48 hours. No tub bat hs or swimming pools times 2 weeks. Maintain tight glucose control at home. Referrals: MELISA LIRA, [employer] [Primary Care Provider] - Discharge Diet: As Tolerated Respiratory Treatments at Home: Deep Breathing/Coughing, Incentive Spirometer Discharge Activity: No Lifting Over 10 Pounds Report the Following to Your Physician Immediately: Shortness of Breath, Nausea, Vomiting, Increase in Pain, Fever over 101 Degrees, Unusual Bleeding, Redness
--- NOTE | 2018-06-29 16:03 | Operative Report ---
Nonrecallable Operative Report DATE OF SURGERY: 06/29/18 PREOPERATIVE DIAGNOSIS: Symptomatic umbilical hernia. POSTOPERATIVE DIAGNOSIS: Symptomatic, recurrent, incarcerated umbilical hernia OPERATION: Open, recurrent umbilical hernia repair with mesh. SURGEON: ZINA MONTOYA ANESTHESIA: LMAC TISSUE REMOVED OR ALTERED: None COMPLICATIONS: None apparent ESTIMATED BLOOD LOSS: Minimal PROCEDURE: Drains/implants: 6.[address] hernia mesh. Procedure in detail: After informed consent was obtained, the patient was brought to the operating room and laid in the supine position. The area of the abdomen was prepped and draped in a normal sterile fashion. A curvilinear infraumbilical incision was created within the bounds of the previous scar. Dissection was carried through the subcutaneous tissue using sharp and blunt dissection. The cicatrix was identified, grasped with a Christiano clamp, and retracted upwards. A Maty clamp was used to encircle and dissect around the cicatrix. The cicatrix was then divided at its base, revealing a small umbilical hernia defect. There was a large amount of omentum protruding through the umbilical hernia defect. This was freed and reduced back into the abdominal cavity. Once this was completed, the fascia was cleaned of abdominal fat. Previous Ethibond sutures were identified and the fascia, consistent with a previous primary umbilical hernia repair. The Ethibond sutures were removed. A 6.[address] hernia mesh was chosen to adequately cover the defect. It was placed into the abdominal cavity and sutured to the anterior abdominal fascia using 0 Prolene suture in mattress fashion. The defect was then closed using 0 Prolene suture in [id number] fashion. The cicatrix was sutured to the abdominal fascia using 3-0 Vicryl suture. The subcutaneous tissue was closed using 3-0 Vicryl suture in simple running fashion. The overlying skin wa s closed using 4-0 Vicryl Rapide suture in subcuticular fashion. A dressing was placed, and the procedure was concluded. All sponge, instrument, and needle counts were correct x2. Condition: Stable.
[2018-06-29 17:44] VITALS: BP 145/77
== END 2018-06-29 17:40 | disposition home or self-care (01) ==
LOC: OROUT 12:03
PROVIDERS: ATTEND Surgery
DX: K42.9 Umbilical hernia without obstruction or gangrene (principal); E11.9 Type 2 diabetes mellitus without complications; I10 Essential (primary) hypertension; Z85.9 Personal history of malignant neoplasm, unspecified; Z89.511 Acquired absence of right leg below knee; Z89.429 Acquired absence of other toe(s), unspecified side; Z79.899 Other long term (current) drug therapy; Z79.4 Long term (current) use of insulin; Z79.84 Long term (current) use of oral hypoglycemic drugs; K42.0 Umbilical hernia with obstruction, without gangrene
CPT/HCPCS: 36415; 82962; 82947; 84132; 81025; 83036; 49587; C1781; J2250; J3010; J3490; J2765; J2405; J7050; J2704; S0028; J0690; J0131; J1741; 830

== ENCOUNTER 2018-07-14 18:48 | Emergency (ER) | payer MEDICARE, MEDICAID ==
[2018-07-14] MEDS ORDERED: NORMAL SALINE 1000 ML 1,000 ML IV ONE (19:41)
--- NOTE | 2018-07-14 19:41 | ER Document Report ---
ED Medical Screen (RME) - General Chief Complaint: Post Surgical Pain Stated Complaint: POSSIBLE INFECTION POST SURGERY Time Seen by Provider: 07/14/18 19:35 Primary Care Provider: ZINA MONTOYA MD [Primary Care Provider] - Follow up as needed Notes: Patient is a 48-year-old female that presents to the emergency department for chief complaint of abdominal pain, nausea, vomiting diarrhea. Had a umbilical hernia repair with mesh on 06/29 at this facility, thinks that her wound is infected. ROS: Other than noted above, the 12 point review of systems was reviewed with the patient and were negative, all pertinent findings are included in the HPI. PHYSICAL EXAMINATION: Vital signs reviewed. GENERAL: Well-appearing, well-nourished and in no acute distress. HEAD: Atraumatic, normocephalic. EYES: Pupils equal round extraocular movements intact, conjunctiva are normal. ENT: Nares patent NECK: Normal range of motion CV: Heart regular rate and rhythm LUNGS: No respiratory distress Musculoskeletal: Normal range of motion Abdomen: Obese, the surgical wound, appears to be healing well, no signs of infection at the site, there is mild granulation tissue, but no purulent discharge. NEUROLOGICAL: Normal speech PSYCH: Normal mood, normal affect. MDM: Patient seen and examined for rapid initial assessment. Vital signs reviewed. A comprehensive ED assessment and evaluation of the patient, analysis of test results and completion of the medical decision making process will be conducted by additional ED providers. *Note is created using voice recognition software and may contain spelling, syn tax or grammatical errors. TRAVEL OUTSIDE OF THE [place] IN LAST 30 DAYS: No - Related Data Allergies/Adverse Reactions: No Known Allergies Allergy (Verified 07/14/18 18:50) Past Medical History - Past Medical History Cardiac Medical History: Reports: Hx Hypercholesterolemia, Hx Hypertension Denies: Hx Coronary Artery Disease, Hx Heart Attack Pulmonary Medical History: Denies: Hx Asthma, Hx Bronchitis, Hx COPD, Hx Pneumonia Neurological Medical History: Denies: Hx Cerebrovascular Accident, Hx Seizures Endocrine Medical History: Reports: Hx Diabetes Mellitus Type 2 Renal/ Medical History: Denies: Hx Peritoneal Dialysis Musculoskeltal Medical History: Denies Hx Arthritis Past Surgical History: Reports: Hx Orthopedic Surgery - BKA right leg, left toe amputation x5 - Immunizations Hx Diphtheria, Pertussis, Tetanus Vaccination: Yes Physical Exam - Vital signs Vitals: Temp Pulse Resp BP Pulse Ox 97.8 F 97 18 150/100 H 100 07/14/18 18:53 07/14/18 18:53 07/14/18 18:53 07/14/18 18:53 07/14/18 18:53 Course - Vital Signs Vital signs: Temp Pulse Resp BP Pulse Ox 97.8 F 97 18 150/100 H 100 07/14/18 18:53 07/14/18 18:53 07/14/18 18:53 07/14/18 18:53 07/14/18 18:53 Doctor's Discharge - Discharge Referrals: ZINA MONTOYA MD [Primary Care Provider] - Follow up as needed
[2018-07-14] MEDS ORDERED: ONDANSETRON HCL INJ/PF 4 MG/2 ML SDV IV ONE (19:42)
[2018-07-14] MEDS ORDERED: FENTANYL CITRATE INJ/PF 100 MCG/2 ML AMPUL IV ONE (19:42)
[2018-07-14 20:23] LABS: ABSOLUTE BASOPHILS # (AUTO) 0.1 10^3/uL (0.0-0.2); ABSOLUTE EOSINOPHILS # (AUTO) 0.2 10^3/uL (0.0-0.6); ABSOLUTE LYMPHOCYTES (AUTO) 3.5 10^3/uL (0.5-4.7); ABSOLUTE MONOCYTES (AUTO) 0.8 10^3/uL (0.1-1.4); ABSOLUTE NEUT (AUTO) 7.2 10^3/uL (1.7-8.2); BASOPHILS % (AUTO) 0.6 % (0-2); EOSINOPHILS % (AUTO) 1.9 % (0-6); HEMATOCRIT 45.6 % (36.0-47.0); HEMOGLOBIN 15.7 g/dL (12.0-15.5); LYMPHOCYTES % (AUTO) 29.2 % (13-45); MEAN CORPUSCULAR HEMOGLOBIN 29.3 pg (27.0-33.4); MEAN CORPUSCULAR HGB CONC 34.4 g/dL (32.0-36.0); MEAN CORPUSCULAR VOLUME 85 fl (80-97); MONOCYTES % (AUTO) 7.1 % (3-13); PLATELET COUNT 444 10^3/uL (150-450); RED BLOOD COUNT 5.36 10^6/uL (3.72-5.28); RED CELL DISTRIBUTION WIDTH 12.6 % (11.5-14.0); SEGMENTED NEUTROPHILS % (AUTO) 61.2 % (42-78); TOTAL CELLS COUNTED % (AUTO) 100 %; WHITE BLOOD COUNT 11.8 10^3/uL (4.0-10.5)
--- NOTE | 2018-07-14 20:23 | RADIOLOGY REPORT (SQ) ---
XR ABDOMEN 2 VIEWS SUPINE ERECT EXAM DATE: 07/14/2018 19:41 HISTORY: Evaluate for postoperative ileus. COMPARISON: None. FINDINGS: There is a nonobstructive bowel gas pattern. No intraperitoneal free air or air-fluid levels are visualized on the upright view. The lung bases are clear. There are no acute bony findings. There are multiple radiopaque pellets scattered throughout the soft tissues, likely sequela of prior injury. IMPRESSION: No evidence of bowel obstruction.
[2018-07-14] MEDS ORDERED: DICYCLOMINE HCL INJ 20 MG/2 ML AMPULE IM ONE (21:41)
--- NOTE | 2018-07-14 22:16 | ER Document Report ---
ED General - General Chief Complaint: Post Surgical Pain Stated Complaint: POSSIBLE INFECTION POST SURGERY Time Seen by Provider: 07/14/18 19:35 Primary Care Provider: ZINA TANG MD [ACTIVE STAFF] - Follow up as needed TRAVEL OUTSIDE OF THE [place] IN LAST 30 DAYS: No - HPI Notes: Patient presents to the emergency department for evaluation. She had umbilical hernia repair by Dr. Tang earlier this month. She comes in stating that there is foul-smelling drainage in the area and she believes it is infected. She states she has had chills, vomiting, diarrhea over the last 24 hours. She states that she had an appointment for follow-up with Dr. Tang on Thursday but canceled as she did not have transportation. She complains of pain in the area that is sharp and stabbing. No melena or hematochezia. Her emesis has been nonbloody, nonbilious. She is still urinating. - Related Data Allergies/Adverse Reactions: No Known Allergies Allergy (Verified 07/14/18 18:50) Past Medical History - General Information source: Patient - Social History Smoking Status: Current Every Day Smoker Chew tobacco use (# tins/day): No Frequency of alcohol use: None Drug Abuse: None Family History: Reviewed & Not Pertinent Patient has suicidal ideation: No Patient has homicidal ideation: No - Past Medical History Cardiac Medical History: Reports: Hx Hypercholesterolemia, Hx Hypertension Denies: Hx Coronary Artery Disease, Hx Heart Attack Pulmonary Medical History: Denies: Hx Asthma, Hx Bronchitis, Hx COPD, Hx Pneumonia Neurological Medical History: Denies: Hx Cerebrovascular Accident, Hx Seizures Endocrine Medical History: Reports: Hx Diabetes Mellitus Type 2 Renal/ Medical History: Denies: Hx Peritoneal Dialysis Musculoskeletal Medical History: Denies Hx Arthritis Past Surgical History: Reports: Hx Orthopedic Surgery - BKA right leg, left toe amputation x5 - Immunizations Hx Diphtheria, Pertussis, Tetanus Vaccination: Yes Review of Systems - Review of Systems Constitutional: Chills EENT: No symptoms reported Cardiovascular: No symptoms reported Respiratory: No symptoms reported Gastrointestinal: See HPI Genitourinary: No symptoms reported Female Genitourinary: No symptoms reported Musculoskeletal: No symptoms reported Skin: See HPI Neurological/Psychological: No symptoms reported Physical Exam - Vital signs Vitals: Temp Pulse Resp BP Pulse Ox 97.8 F 97 18 150/100 H 100 07/14/18 18:53 07/14/18 18:53 07/14/18 18:53 07/14/18 18:53 07/14/18 18:53 - Notes Notes: Vital signs reviewed, please refer to chart. Patient is normocephalic, atraumatic. Pupils equal round, reactive to light. Neck is supple without meningismus. Heart is regular rate and rhythm. Lungs are clear to auscultation bilaterally. Abdomen is soft, globally tender without rebound or guarding. Just inferior to the umbilicus is a well approximated surgical scar with granulation tissue noted. When patient sits forward her subcutaneous fat does fold in this area, keeping it moist. There is no surrounding erythema, induration, no drainage. Extremities without cyanosis, clubbing, edema. Peripheral pulses are equal. Skin is warm and dry. Patient is awake, alert, neurological exam is nonfocal. Course - Re-evaluation Re-evalutation: 07/14/18 22:14 Patient presented to the emergency department for evaluation. She complained of vomiting, diarrhea, chills. She was also concerned about the possibility of her surgical site being infected. At this point I do not see any signs of cellulitis or infection at her wound. She was instructed on keeping the area clean and dry. Laboratory vesication did reveal a mild leukocytosis but otherwise CBC was unremarkable. Chemistries are pending at this time. I did speak with Dr. Tang regarding this patient. He states that as long as the wound is unremarkable, he is comfortable with discharge. Patient has not had any emesis here, no diarrhea.. Her labs continue to be hemolyzed. Awaiting another blood draw. 07/14/18 22:53 Patient remained stable, no emesis, no diarrhea. Awaiting chemistries. - Vital Signs Vital signs: Temp Pulse Resp BP Pulse Ox 97.9 F 54 L 17 167/87 H 100 07/14/18 21:45 07/14/18 21:45 07/14/18 21:45 07/14/18 21:45 07/14/18 21:45 - Laboratory Result Diagrams: 07/14/18 20:05 07/14/18 22:28 Laboratory results interpreted by me: 07/14/18 07/14/18 20:05 22:28 WBC 11.8 H RBC 5.36 H Hgb 15.7 H Sodium 136.5 L BUN 23 H Glucose 301 H AST 11 L Discharge - Discharge Clinical Impression: Nausea and vomiting Qualifiers: Vomiting Intractability: non-intractable Diarrhea Qualifiers: Diarrhea type: unspecified type Qualified Code(s): R19.7 - Diarrhea, unspecified Abdominal pain Qualifiers: Abdominal location: generalized Qualified Code(s): R10.84 - Generalized abdominal pain Condition: Stable Disposition: HOME, SELF-CARE Instructions: Abdominal Pain ([facility]), Antinausea Medication ([facility]), Vomiting ([facility]) Additional Instructions: Keep your wound clean with soap and water, keep the area dry as discussed. Zofran as needed for severe nausea. Bentyl as needed for abdominal cramping and pain. Clear liquids only, then advance slowly to bland diet. Follow-up with Dr. Tang and your primary care physician next week. Return to the emergency department with worsening or new concerning symptoms of any sort. Referrals: ZINA TANG MD [ACTIVE STAFF] - Follow up as needed
[2018-07-14 22:54] LABS: ALANINE AMINOTRANSFERASE 23 U/L (9-52); ALBUMIN 3.6 g/dL (3.5-5.0); ALKALINE PHOSPHATASE 73 U/L (38-126); ANION GAP 9 (5-19); ASPARTATE AMINO TRANSFERASE 11 U/L (14-36); BILIRUBIN,DIRECT 0.1 mg/dL (0.0-0.4); BILIRUBIN,TOTAL 0.3 mg/dL (0.2-1.3); BLOOD UREA NITROGEN 23 mg/dL (7-20); CALCIUM 9.6 mg/dL (8.4-10.2); CARBON DIOXIDE 27 mmol/L (22-30); CHLORIDE 101 mmol/L (98-107); GLUCOSE 301 mg/dL (75-110); LIPASE 275.7 U/L (23-300); SODIUM 136.5 mmol/L (137-145); TOTAL PROTEIN 6.7 g/dL (6.3-8.2)
[2018-07-14] MEDS ORDERED: ONDANSETRON ODT 4 MG TAB (6 TAB/ER DISP) PO PRN (22:59)
[2018-07-14 23:32] VITALS: BP 179/91
== END 2018-07-14 23:32 | disposition home or self-care (01) ==
LOC: ER 18:48
DX: R10.84 Generalized abdominal pain (principal); R11.2 Nausea with vomiting, unspecified; R19.7 Diarrhea, unspecified; R68.83 Chills (without fever); D72.829 Elevated white blood cell count, unspecified; I10 Essential (primary) hypertension; E11.9 Type 2 diabetes mellitus without complications; F17.200 Nicotine dependence, unspecified, uncomplicated; Z98.890 Other specified postprocedural states
CPT/HCPCS: 99283; 96372; 96361; 96374; 96375; 36415; 83690; 85025; 80053; 83605; 74019; J0500; J3010; J2405; J7030; A9270

== ENCOUNTER 2018-08-20 12:08 | Emergency (ER) | payer MEDICAID, MEDICARE, OTHER ==
--- NOTE | 2018-08-20 13:32 | ER Document Report ---
ED Medical Screen (RME) - General Chief Complaint: Leg Pain Stated Complaint: PARM PAIN, LEG PAIN Time Seen by Provider: 08/20/18 13:30 Primary Care Provider: MELISA LIRA FNP-C [Primary Care Provider] - Follow up as needed Mode of Arrival: Wheelchair Information source: Patient Notes: Patient presents complaining of dizziness and feeling faint. Patient complains of tender lumps to her right arm and right groin area although no palpable lumps are appreciated on exam. Patient states she had chest pain yesterday that is currently resolved. Patient does have a history of high blood pressure diabetes and right BKA and left foot surgery. Patient did report having hernia surgery on June 29 of this year. Patient is concerned she may have a blood clot. I have greeted and performed a rapid initial assessment of this patient. A comprehensive ED assessment and evaluation of the patient, analysis of test results and completion of the medical decision making process will be conducted by additional ED providers. TRAVEL OUTSIDE OF THE [place] IN LAST 30 DAYS: No - Related Data Allergies/Adverse Reactions: No Known Allergies Allergy (Verified 07/14/18 18:50) Past Medical History - Past Medical History Cardiac Medical History: Reports: Hx Hypercholesterolemia, Hx Hypertension Denies: Hx Coronary Artery Disease, Hx Heart Attack Pulmonary Medical History: Denies: Hx Asthma, Hx Bronchitis, Hx COPD, Hx Pneumonia Neurological Medical History: Denies: Hx Cerebrovascular Accident, Hx Seizures Endocrine Medical History: Reports: Hx Diabetes Mellitus Type 2 Renal/ Medical History: Denies: Hx Peritoneal Dialysis Musculoskeltal Medical History: Denies Hx Arthritis Past Surgical History: Reports: Hx Orthopedic Surgery - BKA right leg, left toe amputation x5 - Immunizations Hx Diphtheria, Pertussis, Tetanus Vaccination: Yes Physical Exam - Vital signs Vitals: Temp Pulse Resp BP Pulse Ox 97.3 F 97 18 101/66 98 08/20/18 12:15 08/20/18 12:15 08/20/18 12:15 08/20/18 12:15 08/20/18 12:15 - General Notes: Tenderness to right upper arm and right inguinal area, normal skin color and temperature, no appreciated mass or lump at this time Course - Vital Signs Vital signs: Temp Pulse Resp BP Pulse Ox 97.3 F 97 18 101/66 98 08/20/18 12:15 08/20/18 12:15 08/20/18 12:15 08/20/18 12:15 08/20/18 12:15 Doctor's Discharge - Discharge Referrals: MELISA LIRA, RECRUITMENT INTERN-C [Primary Care Provider] - Follow up as needed
[2018-08-20 14:18] LABS: ABSOLUTE BASOPHILS # (AUTO) 0.1 10^3/uL (0.0-0.2); ABSOLUTE EOSINOPHILS # (AUTO) 0.1 10^3/uL (0.0-0.6); ABSOLUTE LYMPHOCYTES (AUTO) 2.3 10^3/uL (0.5-4.7); ABSOLUTE MONOCYTES (AUTO) 0.6 10^3/uL (0.1-1.4); ABSOLUTE NEUT (AUTO) 5.2 10^3/uL (1.7-8.2); EOSINOPHILS % (AUTO) 1.3 % (0-6); HEMATOCRIT 44.3 % (36.0-47.0); HEMOGLOBIN 15.1 g/dL (12.0-15.5); LYMPHOCYTES % (AUTO) 27.7 % (13-45); MEAN CORPUSCULAR HEMOGLOBIN 28.9 pg (27.0-33.4); MEAN CORPUSCULAR HGB CONC 34.1 g/dL (32.0-36.0); MEAN CORPUSCULAR VOLUME 85 fl (80-97); MONOCYTES % (AUTO) 7.7 % (3-13); PLATELET COUNT 390 10^3/uL (150-450); RED BLOOD COUNT 5.23 10^6/uL (3.72-5.28); SEGMENTED NEUTROPHILS % (AUTO) 62.3 % (42-78); TOTAL CELLS COUNTED % (AUTO) 100 %; WHITE BLOOD COUNT 8.4 10^3/uL (4.0-10.5)
[2018-08-20 14:37] LABS: ALANINE AMINOTRANSFERASE 23 U/L (9-52); ALBUMIN 3.9 g/dL (3.5-5.0); ALKALINE PHOSPHATASE 69 U/L (38-126); ANION GAP 12 (5-19); ASPARTATE AMINO TRANSFERASE 12 U/L (14-36); BILIRUBIN,DIRECT 0.2 mg/dL (0.0-0.4); BILIRUBIN,TOTAL 0.6 mg/dL (0.2-1.3); BLOOD UREA NITROGEN 28 mg/dL (7-20); CALCIUM 9.9 mg/dL (8.4-10.2); CARBON DIOXIDE 25 mmol/L (22-30); CHLORIDE 102 mmol/L (98-107); CREATINE KINASE 24 U/L (30-135); GLUCOSE 345 mg/dL (75-110); POTASSIUM 5.1 mmol/L (3.6-5.0); SODIUM 138.9 mmol/L (137-145); TOTAL PROTEIN 7.1 g/dL (6.3-8.2)
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
[2018-08-20 14:49] LABS: CREATINE KINASE MB 0.24 ng/mL (<4.55); TROPONIN I < 0.012 ng/mL
--- NOTE | 2018-08-20 18:44 | EKG REPORT ---
SEVERITY:- ABNORMAL ECG - SINUS RHYTHM ABNORMAL T, CONSIDER ISCHEMIA, DIFFUSE LEADS : Confirmed by: Raghu Rodriguez 20-Aug-2018 18:43:36
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
[2018-08-20 19:38] VITALS: BP 124/95
== END 2018-08-20 19:39 | disposition home or self-care (01) ==
LOC: ER 12:08
DX: G57.11 Meralgia paresthetica, right lower limb (principal); M79.601 Pain in right arm; E11.65 Type 2 diabetes mellitus with hyperglycemia; Z79.4 Long term (current) use of insulin; E78.00 Pure hypercholesterolemia, unspecified; I10 Essential (primary) hypertension; Z89.511 Acquired absence of right leg below knee
CPT/HCPCS: 36415; 71046; 80053; 82550; 82553; 84484; 85025; 93005; 93010; 99284

== ENCOUNTER 2018-09-13 15:50 | Emergency (ER) | payer MEDICARE, MEDICAID ==
--- NOTE | 2018-09-13 16:35 | ER Document Report ---
ED Medical Screen (RME) - General Chief Complaint: Chest Pain Stated Complaint: CHEST PAIN Primary Care Provider: MELISA LIRA FNP-C [Primary Care Provider] - Follow up as needed TRAVEL OUTSIDE OF THE [place] IN LAST 30 DAYS: No - HPI Notes: 09/13/18 16:33 Patient is a 48-year-old female with a history of insulin-dependent diabetes, hypertension, hypercholesterolemia who presents complaining of left sternal chest pain that started last night and has been constant since. Patient states that pushing on her chest makes the pain worse. Pain does not radiate, but she does feel pain towards her back. She is still eating and drinking without difficulty. She is urinating normally. No other concerns or complaints. No recent illness. Denies any prolonged immobilization, distance travel, recent surgery/trauma, personal cancer history, hormone use, smoking, or previous DVT/PE. Denies SIMPSON, fever, neck pain, URI, Abd pain, or rash. I have treated and performed a rapid initial assessment of this patient. A comprehensive ED assessment and evaluation of the patient, analysis of test results and completion of medical decision making process will be conducted by additional ED providers. PHYSICAL EXAMINATION: GENERAL: Well-appearing, well-nourished and in no acute distress. A&Ox4. Answers questions appropriately. Chest: Moderate chest wall tenderness to palpation LUNGS: Breath sounds clear to auscultation bilaterally and equal. No wheezes rales or rhonchi. HEART: Regular rate and rhythm without murmurs, rubs, gallops. Extremities: No cyanosis, clubbing, or edema b/l. Rony negative. Patient has a BKA right lower extremity. NEUROLOGICAL: Normal speech, normal gait. PSYCH: Normal mood, normal affect. - Related Data Allergies/Adverse Reactions: No Known Allergies Allergy (Verified 09/13/18 15:51) Past Medical History - Social History Chew tobacco use (# tins/day): No Frequency of alcohol use: None Drug Abuse: None - Past Medical History Cardiac Medical History: Reports: Hx Hypercholesterolemia, Hx Hypertension Denies: Hx Coronary Artery Disease, Hx Heart Attack Pulmonary Medical History: Denies: Hx Asthma, Hx Bronchitis, Hx COPD, Hx Pneumonia Neurological Medical History: Denies: Hx Cerebrovascular Accident, Hx Seizures Endocrine Medical History: Reports: Hx Diabetes Mellitus Type 2 Renal/ Medical History: Denies: Hx Peritoneal Dialysis Musculoskeltal Medical History: Denies Hx Arthritis Past Surgical History: Reports: Hx Orthopedic Surgery - BKA right leg, left toe amputation x5 - Immunizations Hx Diphtheria, Pertussis, Tetanus Vaccination: Yes Physical Exam - Vital signs Vitals: Temp Pulse Resp BP Pulse Ox 98.4 F 94 16 101/67 98 09/13/18 16:00 09/13/18 16:00 09/13/18 16:00 09/13/18 16:00 09/13/18 16:00 Course - Vital Signs Vital signs: Temp Pulse Resp BP Pulse Ox 98.4 F 94 16 101/67 98 09/13/18 16:00 09/13/18 16:00 09/13/18 16:00 09/13/18 16:00 09/13/18 16:00 Doctor's Discharge - Discharge Referrals: MELISA LIRA IT AUDIT MANAGER-C [Primary Care Provider] - Follow up as needed
[2018-09-13 17:10] LABS: ABSOLUTE BASOPHILS # (AUTO) 0.1 10^3/uL (0.0-0.2); ABSOLUTE EOSINOPHILS # (AUTO) 0.1 10^3/uL (0.0-0.6); ABSOLUTE LYMPHOCYTES (AUTO) 2.8 10^3/uL (0.5-4.7); ABSOLUTE MONOCYTES (AUTO) 0.7 10^3/uL (0.1-1.4); ABSOLUTE NEUT (AUTO) 5.9 10^3/uL (1.7-8.2); BASOPHILS % (AUTO) 0.9 % (0-2); EOSINOPHILS % (AUTO) 1.5 % (0-6); HEMATOCRIT 42.9 % (36.0-47.0); HEMOGLOBIN 14.6 g/dL (12.0-15.5); LYMPHOCYTES % (AUTO) 29.2 % (13-45); MEAN CORPUSCULAR HEMOGLOBIN 28.8 pg (27.0-33.4); MEAN CORPUSCULAR HGB CONC 33.9 g/dL (32.0-36.0); MEAN CORPUSCULAR VOLUME 85 fl (80-97); PLATELET COUNT 393 10^3/uL (150-450); RED BLOOD COUNT 5.06 10^6/uL (3.72-5.28); SEGMENTED NEUTROPHILS % (AUTO) 61.4 % (42-78); TOTAL CELLS COUNTED % (AUTO) 100 %; WHITE BLOOD COUNT 9.6 10^3/uL (4.0-10.5)
[2018-09-13 17:29] LABS: ALANINE AMINOTRANSFERASE 23 U/L (9-52); ALBUMIN 3.9 g/dL (3.5-5.0); ALKALINE PHOSPHATASE 69 U/L (38-126); ANION GAP 13 (5-19); ASPARTATE AMINO TRANSFERASE 15 U/L (14-36); BILIRUBIN,DIRECT 0.3 mg/dL (0.0-0.4); BILIRUBIN,TOTAL 0.5 mg/dL (0.2-1.3); BLOOD UREA NITROGEN 26 mg/dL (7-20); CALCIUM 9.8 mg/dL (8.4-10.2); CARBON DIOXIDE 27 mmol/L (22-30); CHLORIDE 100 mmol/L (98-107); GLUCOSE 263 mg/dL (75-110); POTASSIUM 4.9 mmol/L (3.6-5.0); SODIUM 139.8 mmol/L (137-145); TOTAL PROTEIN 6.6 g/dL (6.3-8.2)
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
[2018-09-13] MEDS ORDERED: RINGERS SOLUTION,LACTATED 1,000 ML IV ONE (17:41)
[2018-09-13] MEDS ORDERED: KETOROLAC TROMETHAMINE INJ/PF 30 MG/1 ML SDV IV ONE (18:07)
[2018-09-13] MEDS ORDERED: FENTANYL CITRATE INJ/PF 100 MCG/2 ML AMPUL IV ONE ×2 (18:07→19:53)
[2018-09-13 18:39] LABS: VENOUS BLOOD BASE EXCESS 0.4 mmol/L; VENOUS BLOOD HCO3 25.8 mmol/L (20-32); VENOUS BLOOD PCO2 44.5 mmHg (35-63); VENOUS BLOOD PH 7.38 (7.30-7.42)
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
[2018-09-13 19:44] LABS: AMORPHOUS SEDIMENT,URINE TRACE /HPF; APPEARANCE,URINE SLIGHTLY-CLOUDY; BILIRUBIN,URINE NEGATIVE (NEGATIVE); COLOR,URINE YELLOW; GLUCOSE, URINE >=500 mg/dL (NEGATIVE); KETONES,URINE NEGATIVE (NEGATIVE); LEUKOCYTE ESTERASE,URINE MODERATE (NEGATIVE); NITRITE,URINE NEGATIVE (NEGATIVE); PROTEIN,URINE 100 mg/dL (NEGATIVE); URINE SPECIFIC GRAVITY 1.016; UROBILINOGEN,URINE NEGATIVE mg/dL (<2.0)
[2018-09-13] MEDS ORDERED: HYDROCODONE/ACETAMINOPHEN 7.5-325 MG TABLET PO ONE (20:01)
[2018-09-13] MEDS ORDERED: LISINOPRIL 10 MG TABLET PO ONE (21:26)
[2018-09-13 21:58] VITALS: BP 175/111
--- NOTE | 2018-09-14 07:40 | EKG REPORT ---
SEVERITY:- ABNORMAL ECG - SINUS RHYTHM ABNORMAL T, CONSIDER ISCHEMIA, LATERAL LEADS : Confirmed by: Cristy Loera MD 14-Sep-2018 07:39:41
--- NOTE | 2018-09-14 07:40 | EKG REPORT ---
SEVERITY:- ABNORMAL ECG - SINUS RHYTHM NONSPECIFIC T ABNORMALITIES, LATERAL LEADS : Confirmed by: Cristy Loera MD 14-Sep-2018 07:39:38
== END 2018-09-13 23:21 | disposition home or self-care (01) ==
LOC: ER 15:50
DX: R07.9 Chest pain, unspecified (principal); M89.8X1 Other specified disorders of bone, shoulder; E78.5 Hyperlipidemia, unspecified; E78.00 Pure hypercholesterolemia, unspecified; I10 Essential (primary) hypertension; E11.9 Type 2 diabetes mellitus without complications; Z79.4 Long term (current) use of insulin; Z79.84 Long term (current) use of oral hypoglycemic drugs; Z79.899 Other long term (current) drug therapy
CPT/HCPCS: 93005; 96376; 99285; 96361; 96374; 96375; 36415; 87086; 85025; 87088; 80053; 81001; 84484; 82803; 71045; 93010; J3010; J1885; J7120; A9270 ×2

== ENCOUNTER 2018-10-30 20:45 | Emergency (ER) | payer MEDICARE, MEDICAID ==
[2018-10-30 21:49] VITALS: BP 133/77
--- NOTE | 2018-10-31 18:58 | EKG REPORT ---
SEVERITY:- ABNORMAL ECG - SINUS RHYTHM ABNORMAL T, CONSIDER ISCHEMIA, DIFFUSE LEADS : Confirmed by: Cristy Loera MD 31-Oct-2018 18:58:02
== END 2018-10-30 23:45 | disposition left against medical advice (07) ==
LOC: ER 20:45
DX: Z53.21 Procedure and treatment not carried out due to patient leaving prior to being seen by health care provider (principal); R07.9 Chest pain, unspecified
CPT/HCPCS: 93005; 93010